=== PATIENT | female | born 1985 | race African-American/Black ===

== ENCOUNTER 2017-04-26 00:40 | Inpatient (IN) | payer OTHER ==
[2017-04-26] VITALS (8 sets, daily range): BP systolic 67–119; BP diastolic 55–78
[~2017-04-26] VITALS: Ht 172.7 cm; Wt 68.0 kg
--- NOTE | 2017-04-26 03:17 | Emergency Room Report ---
History of Present Illness General Chief Complaint: Behavioral Complaint Source: Patient, EMS Present Illness HPI 31-year-old female, history of seizures on Keppra and Dilantin, possible psych history, presenting with abnormal behavior, EMS brought her from the street. Patient is not getting clear history, states that she does not know why she is here. Not necessarily confused but stating that she has no reason to be here. States that she is living at a friend's house right now. No psych history. No auditory hallucinations, no suicidal ideation States that she may have had a seizure today, takes Keppra and Dilantin, has been compliant with her medications States that she gets a seizure about once a month, has not seen a neurologist in a while No head trauma Currently patient feels fine but states that she just wants to sleep She denies any alcohol or drug use Patient is currently refusing all labs to be drawn Allergies: Coded Allergies: No Known Allergies (Unverified , 04/26/17) Patient History Past Medical History: see triage record Past Surgical History: none Pertinent Family History: none Last Menstrual Period: NA Reviewed Nursing Documentation: PMH: Agreed, PSxH: Agreed Nursing Documentation-PMH Hx Diabetes: Yes History Of Psychiatric Problem: Yes - SCHIZOPHRENIA Review of Systems All Other Systems: negative except mentioned in HPI Physical Exam Vital Signs Date Time Temp Pulse Resp B/P (MAP) Pulse Ox O2 Delivery O2 Flow Rate FiO2 04/26/17 00:38 98.1 64 18 110/78 100 Room Air Sp02 EP Interpretation: reviewed, normal General Appearance: other - disheveled female, calm, cooperative, poor historian Head: normocephalic, atraumatic Eyes: bilateral eye normal inspection, bilateral eye PERRL, bilateral eye EOMI ENT: normal ENT inspection, normal pharynx, normal voice, moist mucus membranes Neck: normal inspection, full range of motion, supple Respiratory: normal inspection, lungs clear, normal breath sounds, no respiratory distress, no retraction, no wheezing, speaking full sentences, chest symmetrical Cardiovascular #1: normal inspection, regular rate, rhythm, normal capillary refill Cardiovascular #2: 2+ radial (R), 2+ radial (L) Gastrointestinal: normal inspection, non tender, soft, non-distended, no guarding Musculoskeletal: normal inspection, back normal, normal range of motion, non- tender Neurologic: normal inspection, alert, oriented x3, responsive, school principal III-XII nml as tested, motor strength/tone normal, sensory intact, normal gait, speech normal Psychiatric: no suicidal/homicidal ideation Skin: normal inspection, normal color, no rash, warm/dry, well hydrated, normal turgor Medical Decision Making Diagnostic Impression: Primary Impression: Seizure Additional Impressions: Drug intoxication ER Course 31-year-old female brought in for behavioral complaint by EMS, also states that she had a seizure DDX: Primary seizure, triggered by infection UTI/PNA vs. dehydration vs. medication non compliance Electrolyte disturbance: hypoglycemia vs. hyponatremia vs. hypocalcemia vs. hypomagnesemia Cardiac: Arrythmia/acs Intracranial pathology: intracranial bleed, stroke Tox Plan: BGM EKG, UCG Labs, seizure medication levels, tox labs Consider CT ER course: No further seizures in ED. no SI Has been stable during ED stay. Sleeping comfortably. Patient initially refused all labs, labs were eventually drawn, patient noted to be positive for +positive drug tox for cocaine/marijuana/amphetamine Unclear if seizures were related to her seizure disorder, possible eclampsia However patient's blood pressure has remained normal keppra given 1mg magnesium given pending pelvic sonogram in the morning sent page out to obgyn pending response Disposition: Patient admitted to telemetry Discussed with hospitalist Dr Hampton EKG Diagnostic Results EP Interpretation: Yes Rate: normal Rhythm: NSR ST Segments: No acute changes ASA given to patient: No Laboratory Tests Test 04/26/17 04:05 White Blood Count 11.1 K/UL (4.8-10.8) H Red Blood Count 3.51 M/UL (4.20-5.40) L Hemoglobin 10.7 G/DL (12.0-16.0) L Hematocrit 31.6 % (37.0-47.0) L Mean Corpuscular Volume 90 FL (80-99) Mean Corpuscular Hemoglobin 30.6 PG (27.0-31.0) Mean Corpuscular Hemoglobin Concent 33.9 G/DL (32.0-36.0) Red Cell Distribution Width 13.7 % (11.6-14.8) Platelet Count 311 K/UL (150-450) Mean Platelet Volume 5.9 FL (6.5-10.1) L Neutrophils (%) (Auto) 65.4 % (45.0-75.0) Lymphocytes (%) (Auto) 24.3 % (20.0-45.0) Monocytes (%) (Auto) 5.9 % (1.0-10.0) Eosinophils (%) (Auto) 3.8 % (0.0-3.0) H Basophils (%) (Auto) 0.6 % (0.0-2.0) Urine Color Yellow Urine Appearance Clear Urine pH 6 (4.5-8.0) Urine Specific [place] 1.020 (1.005-1.035) Urine Protein 1+ (NEGATIVE) H Urine Glucose (UA) Negative (NEGATIVE) Urine Ketones Negative (NEGATIVE) Urine Occult Blood 1+ (NEGATIVE) H Urine Nitrite Negative (NEGATIVE) Urine Bilirubin Negative (NEGATIVE) Urine Urobilinogen Normal MG/DL (0.0-1.0) Urine Leukocyte Esterase 1+ (NEGATIVE) H Urine RBC 5-10 /HPF (0 - 2) H Urine WBC 5-10 /HPF (0 - 2) H Urine Squamous Epithelial Cells Few /LPF (NONE/OCC) Urine Bacteria Few /HPF (NONE) Urine HCG, Qualitative Positive Sodium Level 137 MMOL/L (136-145) Potassium Level 3.7 MMOL/L (3.5-5.1) Chloride Level 105 MMOL/L (98-107) Carbon Dioxide Level 26 MMOL/L (21-32) Anion Gap 6 mmol/L (5-15) Blood Urea Nitrogen 8 mg/dL (7-18) Creatinine 0.8 MG/DL (0.55-1.30) Estimate Glomerular Filtration Rate > 60 mL/min (>60) Glucose Level 111 MG/DL (74-106) H Calcium Level 8.5 MG/DL (8.5-10.1) Total Bilirubin 0.1 MG/DL (0.2-1.0) L Aspartate Amino Transferase (AST) 14 U/L (15-37) L Alanine Aminotransferase (ALT) 17 U/L (12-78) Alkaline Phosphatase 61 U/L (46-116) Total Protein 6.5 G/DL (6.4-8.2) Albumin 2.8 G/DL (3.4-5.0) L Globulin 3.7 g/dL Albumin/Globulin Ratio 0.8 (1.0-2.7) L Human Chorionic Gonadotropin, Quant 37235 mIU/mL (1-6) H Salicylates Level 0.7 ug/mL (2.8-20) L Urine Opiates Screen Negative (NEGATIVE) Acetaminophen Level < 2 MCG/ML (10-30) L Urine Barbiturates Screen Negative (NEGATIVE) Phenytoin (Dilantin) Level < 0.4 ug/mL (10-20) L Phencyclidine (PCP) Screen Negative (NEGATIVE) Urine Amphetamines Screen Positive (NEGATIVE) H Urine Benzodiazepines Screen Negative (NEGATIVE) Urine Cocaine Screen Positive (NEGATIVE) H Urine Marijuana (THC) Screen Positive (NEGATIVE) H Serum Alcohol < 3 mg/dL Last Vital Signs Date Time Temp Pulse Resp B/P (MAP) Pulse Ox O2 Delivery O2 Flow Rate FiO2 04/26/17 00:48 98.1 64 18 110/78 100 Room Air Disposition: ADMITTED INPATIENT Condition: Serious Jimena Garcia M.D. Apr 26, 2017 03:17
[2017-04-26 04:22] LABS: APPEARANCE,URINE CLEAR; BASOPHILS % (AUTO) 0.6 % (0.0-2.0); EOSINOPHILS % (AUTO) 3.8 % (0.0-3.0); KETONES,URINE NEGATIVE (NEGATIVE); LEUKOCYTE ESTERASE ,URINE 1+ (NEGATIVE); LYMPHOCYTES % (AUTO) 24.3 % (20.0-45.0); MEAN CORPUSCULAR HEMOGLOBIN 30.6 PG (27.0-31.0); MEAN CORPUSCULAR HGB CONC 33.9 G/DL (32.0-36.0); MEAN CORPUSCULAR VOLUME 90 FL (80-99); MEAN PLATELET VOLUME 5.9 FL (6.5-10.1); MONOCYTES % (AUTO) 5.9 % (1.0-10.0); NEUTROPHILS % (AUTO) 65.4 % (45.0-75.0); NITRITE,URINE NEGATIVE (NEGATIVE); PH,URINE 6 (4.5-8.0); PLATELET COUNT 311 K/UL (150-450); PROTEIN,URINE 1+ (NEGATIVE); RED BLOOD COUNT 3.51 M/UL (4.20-5.40); RED CELL DISTRIBUTION WIDTH 13.7 % (11.6-14.8); UROBILINOGEN,URINE NORMAL MG/DL (0.0-1.0); WHITE BLOOD COUNT 11.1 K/UL (4.8-10.8)
[2017-04-26 04:28] LABS: BACTERIA,URINE FEW /HPF; SQUAMOUS EPITHELIAL CELL,UR FEW /LPF (NONE/OCC)
[2017-04-26 04:39] LABS: ANION GAP 6 mmol/L (5-15); CALCIUM 8.5 MG/DL (8.5-10.1); CARBON DIOXIDE 26 MMOL/L (21-32); CHLORIDE 105 MMOL/L (98-107); CREATININE 0.8 MG/DL (0.55-1.30); GLOMERULAR FILTRATION RATE > 60 mL/min (>60); POTASSIUM 3.7 MMOL/L (3.5-5.1); SODIUM 137 MMOL/L (136-145)
[2017-04-26 04:43] LABS: ALANINE AMINOTRANSFERASE 17 U/L (12-78); ALBUMIN/GLOBULIN RATIO 0.8 (1.0-2.7); ASPARTATE AMINO TRANSFERASE 14 U/L (15-37); TOTAL PROTEIN 6.5 G/DL (6.4-8.2)
[2017-04-26 05:02] LABS: ACETAMINOPHEN < 2 MCG/ML (10-30); ALCOHOL < 3 mg/dL
[2017-04-26] MEDS ORDERED: Miralax 17gm pkt ORAL PRN (07:00)
[2017-04-26] MEDS ORDERED: Zolpidem 5mg tab ORAL PRN (07:00)
[2017-04-26] MEDS ORDERED: LORazepam Inj 2mg/ml 1ml IV PRN (07:00)
[2017-04-26] MEDS ORDERED: Mylanta II UD 30ml ORAL PRN (07:00)
[2017-04-26] MEDS ORDERED: Morphine Sulfate 2mg/ml Inj IVP PRN (07:00)
[2017-04-26] MEDS ORDERED: cefTRIAXone 1 GM in D5W 55 ML IVPB ONE (07:45)
[2017-04-26] MEDS ORDERED: levETIRAcetam 500mg vial IV ONE (08:24)
[2017-04-26] MEDS ORDERED: levETIRAcetam 1,500 MG in D5W 95 ML IVPB ONE (09:00)
--- NOTE | 2017-04-26 12:43 | History and Physical ---
History of Present Illness General Date patient seen: Apr 26, 2017 Reason for Hospitalization: Behavioral Complaint Present Illness HPI 31-year-old female, history of seizures on Keppra and Dilantin, possible psych history, presenting with abnormal behavior, EMS brought her from the street. States that she may have had a seizure today, has been compliant with her medications States that she gets a seizure about once a month, has not seen a neurologist in a while. She is admitted to telemetry for uncontrolled seizures. Allergies: Coded Allergies: No Known Allergies (Unverified , 04/26/17) Patient History Healthcare decision maker Resuscitation status Full Code Advanced Directive on File No Past Medical/Surgical History Past Medical/Surgical History: (1) Seizure Review of Systems All Other Systems: negative except mentioned in HPI Physical Exam General Appearance: WD/WN Lines, tubes and drains: peripheral, central line HEENT: normocephalic, anicteric Neck: non-tender, supple Respiratory/Chest: chest wall non-tender, lungs clear Cardiovascular/Chest: normal peripheral pulses, normal rate Abdomen: normal bowel sounds Last 24 Hour Vital Signs Date Time Temp Pulse Resp B/P (MAP) Pulse Ox O2 Delivery O2 Flow Rate FiO2 04/26/17 10:40 71 16 99/55 100 Room Air 04/26/17 09:03 98.6 74 15 99/55 100 Room Air 04/26/17 07:30 71 16 67/73 100 Room Air 04/26/17 04:48 97.9 72 17 112/61 100 Room Air 04/26/17 02:48 98.1 61 15 119/71 100 Room Air 04/26/17 00:48 98.1 64 18 110/78 100 Room Air 04/26/17 00:38 98.1 64 18 110/78 100 Room Air Intake and Output 04/26/17 04/27/17 19:00 07:00 Intake Total 310 ml Balance 310 ml Intake IV Total 310 ml Laboratory Tests Test 04/26/17 04:05 White Blood Count 11.1 K/UL (4.8-10.8) H Red Blood Count 3.51 M/UL (4.20-5.40) L Hemoglobin 10.7 G/DL (12.0-16.0) L Hematocrit 31.6 % (37.0-47.0) L Mean Corpuscular Volume 90 FL (80-99) Mean Corpuscular Hemoglobin 30.6 PG (27.0-31.0) Mean Corpuscular Hemoglobin Concent 33.9 G/DL (32.0-36.0) Red Cell Distribution Width 13.7 % (11.6-14.8) Platelet Count 311 K/UL (150-450) Mean Platelet Volume 5.9 FL (6.5-10.1) L Neutrophils (%) (Auto) 65.4 % (45.0-75.0) Lymphocytes (%) (Auto) 24.3 % (20.0-45.0) Monocytes (%) (Auto) 5.9 % (1.0-10.0) Eosinophils (%) (Auto) 3.8 % (0.0-3.0) H Basophils (%) (Auto) 0.6 % (0.0-2.0) Urine Color Yellow Urine Appearance Clear Urine pH 6 (4.5-8.0) Urine Specific [place] 1.020 (1.005-1.035) Urine Protein 1+ (NEGATIVE) H Urine Glucose (UA) Negative (NEGATIVE) Urine Ketones Negative (NEGATIVE) Urine Occult Blood 1+ (NEGATIVE) H Urine Nitrite Negative (NEGATIVE) Urine Bilirubin Negative (NEGATIVE) Urine Urobilinogen Normal MG/DL (0.0-1.0) Urine Leukocyte Esterase 1+ (NEGATIVE) H Urine RBC 5-10 /HPF (0 - 2) H Urine WBC 5-10 /HPF (0 - 2) H Urine Squamous Epithelial Cells Few /LPF (NONE/OCC) Urine Bacteria Few /HPF (NONE) Urine HCG, Qualitative Positive Sodium Level 137 MMOL/L (136-145) Potassium Level 3.7 MMOL/L (3.5-5.1) Chloride Level 105 MMOL/L (98-107) Carbon Dioxide Level 26 MMOL/L (21-32) Anion Gap 6 mmol/L (5-15) Blood Urea Nitrogen 8 mg/dL (7-18) Creatinine 0.8 MG/DL (0.55-1.30) Estimat Glomerular Filtration Rate > 60 mL/min (>60) Glucose Level 111 MG/DL (74-106) H Calcium Level 8.5 MG/DL (8.5-10.1) Total Bilirubin 0.1 MG/DL (0.2-1.0) L Aspartate Amino Transf (AST/SGOT) 14 U/L (15-37) L Alanine Aminotransferase (ALT/SGPT) 17 U/L (12-78) Alkaline Phosphatase 61 U/L (46-116) Total Protein 6.5 G/DL (6.4-8.2) Albumin 2.8 G/DL (3.4-5.0) L Globulin 3.7 g/dL Albumin/Globulin Ratio 0.8 (1.0-2.7) L Human Chorionic Gonadotropin, Quant 52013 mIU/mL (1-6) H Salicylates Level 0.7 ug/mL (2.8-20) L Urine Opiates Screen Negative (NEGATIVE) Acetaminophen Level < 2 MCG/ML (10-30) L Urine Barbiturates Screen Negative (NEGATIVE) Phenytoin (Dilantin) Level < 0.4 ug/mL (10-20) L Phencyclidine (PCP) Screen Negative (NEGATIVE) Urine Amphetamines Screen Positive (NEGATIVE) H Urine Benzodiazepines Screen Negative (NEGATIVE) Urine Cocaine Screen Positive (NEGATIVE) H Urine Marijuana (THC) Screen Positive (NEGATIVE) H Serum Alcohol < 3 mg/dL Height (Feet): 5 Height (Inches): 8.00 Weight (Pounds): 150 Medications Current Medications Medications (Trade) Dose Ordered Sig/Peter Route PRN Reason Start Time Stop Time Status Last Admin Dose Admin Acetaminophen (Tylenol) 650 mg Q4H PRN ORAL fever (temp >100.5F) 04/26/17 07:00 05/26/17 06:59 Al Hydroxide/Mg Hydroxide (Mylanta II) 30 ml Q6H PRN ORAL dyspepsia 04/26/17 07:00 05/26/17 06:59 Dextrose (Dextrose 50%) STAT PRN IV Hypoglycemia 04/26/17 07:00 05/26/17 06:59 Morphine Sulfate (Morphine Sulfate) 1 mg Q4H PRN IVP For Pain 04/26/17 07:00 05/03/17 06:59 Ondansetron HCl (Zofran) 4 mg Q6H PRN IVP Nausea & Vomiting 04/26/17 07:00 05/26/17 06:59 Polyethylene Glycol (Miralax) 17 gm HSPRN PRN ORAL Constipation 04/26/17 07:00 05/26/17 06:59 Assessment/Plan Problem List: (1) Uncontrolled seizures ICD Codes: R56.9 - Unspecified convulsions SNOMED: [id number] Assessment/Plan seizure precaution Neuro evaluation dvt prophylaxis psych evaluation. ANSON HORAN Apr 26, 2017 12:43
--- NOTE | 2017-04-26 14:14 | Neurology Progress Note ---
Objective Physical Exam Last Vital Signs Date Time Temp Pulse Resp B/P (MAP) Pulse Ox O2 Delivery O2 Flow Rate FiO2 04/26/17 12:48 97.5 66 18 102/60 97 04/26/17 10:40 Room Air Laboratory Tests Test 04/26/17 04:05 White Blood Count 11.1 K/UL (4.8-10.8) H Red Blood Count 3.51 M/UL (4.20-5.40) L Hemoglobin 10.7 G/DL (12.0-16.0) L Hematocrit 31.6 % (37.0-47.0) L Mean Corpuscular Volume 90 FL (80-99) Mean Corpuscular Hemoglobin 30.6 PG (27.0-31.0) Mean Corpuscular Hemoglobin Concent 33.9 G/DL (32.0-36.0) Red Cell Distribution Width 13.7 % (11.6-14.8) Platelet Count 311 K/UL (150-450) Mean Platelet Volume 5.9 FL (6.5-10.1) L Neutrophils (%) (Auto) 65.4 % (45.0-75.0) Lymphocytes (%) (Auto) 24.3 % (20.0-45.0) Monocytes (%) (Auto) 5.9 % (1.0-10.0) Eosinophils (%) (Auto) 3.8 % (0.0-3.0) H Basophils (%) (Auto) 0.6 % (0.0-2.0) Urine Color Yellow Urine Appearance Clear Urine pH 6 (4.5-8.0) Urine Specific [place] 1.020 (1.005-1.035) Urine Protein 1+ (NEGATIVE) H Urine Glucose (UA) Negative (NEGATIVE) Urine Ketones Negative (NEGATIVE) Urine Occult Blood 1+ (NEGATIVE) H Urine Nitrite Negative (NEGATIVE) Urine Bilirubin Negative (NEGATIVE) Urine Urobilinogen Normal MG/DL (0.0-1.0) Urine Leukocyte Esterase 1+ (NEGATIVE) H Urine RBC 5-10 /HPF (0 - 2) H Urine WBC 5-10 /HPF (0 - 2) H Urine Squamous Epithelial Cells Few /LPF (NONE/OCC) Urine Bacteria Few /HPF (NONE) Urine HCG, Qualitative Positive Sodium Level 137 MMOL/L (136-145) Potassium Level 3.7 MMOL/L (3.5-5.1) Chloride Level 105 MMOL/L (98-107) Carbon Dioxide Level 26 MMOL/L (21-32) Anion Gap 6 mmol/L (5-15) Blood Urea Nitrogen 8 mg/dL (7-18) Creatinine 0.8 MG/DL (0.55-1.30) Estimat Glomerular Filtration Rate > 60 mL/min (>60) Glucose Level 111 MG/DL (74-106) H Calcium Level 8.5 MG/DL (8.5-10.1) Total Bilirubin 0.1 MG/DL (0.2-1.0) L Aspartate Amino Transf (AST/SGOT) 14 U/L (15-37) L Alanine Aminotransferase (ALT/SGPT) 17 U/L (12-78) Alkaline Phosphatase 61 U/L (46-116) Total Protein 6.5 G/DL (6.4-8.2) Albumin 2.8 G/DL (3.4-5.0) L Globulin 3.7 g/dL Albumin/Globulin Ratio 0.8 (1.0-2.7) L Human Chorionic Gonadotropin, Quant 16862 mIU/mL (1-6) H Salicylates Level 0.7 ug/mL (2.8-20) L Urine Opiates Screen Negative (NEGATIVE) Acetaminophen Level < 2 MCG/ML (10-30) L Urine Barbiturates Screen Negative (NEGATIVE) Phenytoin (Dilantin) Level < 0.4 ug/mL (10-20) L Phencyclidine (PCP) Screen Negative (NEGATIVE) Urine Amphetamines Screen Positive (NEGATIVE) H Urine Benzodiazepines Screen Negative (NEGATIVE) Urine Cocaine Screen Positive (NEGATIVE) H Urine Marijuana (THC) Screen Positive (NEGATIVE) H Serum Alcohol < 3 mg/dL Impression/Recommendations Recommendations # [id number] PSYCH SHANIQUA Brooks Apr 26, 2017 14:14
[2017-04-26] MEDS: OXcarbazepine 150mg tab ORAL SCH ×2 (15:29→23:16)
--- NOTE | 2017-04-26 15:37 | Diagnostic Imaging Report ---
Indication:Reason For Exam: PREOP. Unknown LMP. Technique: Grayscale and duplex Doppler imaging of the pelvis utilizing transabdominal probe. Comparison: None Findings: Uterus measures 15.3 x 8.5 x 10 cm. The cervix appears long and closed. A patterson live intrauterine is noted. Placenta is anterior. Biparietal diameter measuring 29 mm. Head circumference measures 105 mm. [place]-rump length measures approximately 79 mm. Femoral length measures approximately 13 mm. heart rate measured 150 bpm. Bilateral ovaries are not definitively visualized. There is some echogenic debris noted within the bladder. No free fluid is seen. IMPRESSION: [place] live intrauterine with gestational age by ultrasound of approximately 15 weeks. No gross abnormality. Ovaries not definitively visualized. No free pelvic fluid. Questionable echogenic debris noted within the urinary bladder. This may be artifactual. Correlate with urinalysis to exclude cystitis. Note: A negative ultrasound evaluation does not insure well-being or positive outcome for the . monitoring including a nonstress test may be needed and clinical evaluation by [employer]EL[employer] is highly recommended.
--- NOTE | 2017-04-26 23:15 | Consultation ---
DATE OF CONSULTATION: 04/26/2017 NEUROLOGICAL CONSULTATION CONSULTING PHYSICIAN: Christopher Davison M.D. REQUESTING PHYSICIAN: Antoine Hampton M.D. HISTORY OF PRESENT ILLNESS: This 31-year-old female seen in neurological consultation to evaluate the chronic seizure disorder, currently presenting with abnormal behavior. The patient indicated that she came here because she did not feel well, but according to records, she was picked up initially on the street, presenting that she has history of seizures. She was brought to emergency room. Her vital signs remained stable. She was afebrile. Her EKG, normal sinus rhythm. Lab work was obtained. This revealed WBC 11.1, hemoglobin 10.7, and hematocrit 31.6. Urinalysis 5-10 WBCs and 1+ leukocyte esterase. Toxicology panel was positive for amphetamine, cocaine, and marijuana. Chemistry panel was unremarkable except for blood sugar of 111 and positive test. Since admission till present, the patient remained in the bed, refusing diagnostic studies. Since admission till present, there was no evidence of paroxysmal activities. The patient was able to inform me that she is suffering from severe depression. She felt that Paxil caused her seizures, where she continued to have them once or twice in a couple of months, some of the seizures with urinary incontinence, loss of consciousness and fall, some "very violent," description was inconsistent. The patient indicates that treatment she was using, Depakote and Keppra, was not effective. She tried Tegretol, which was "more effective" and she tried Lamictal, which gave her rash. She felt Depakote was also effective. The patient stopped taking all of this couple of months ago. She also stopped taking psychiatric treatment because she felt that they make her feel worse. PAST MEDICAL HISTORY: The patient has a history of asthma. She used to use albuterol. She denies any other major problems. SOCIAL HISTORY: The patient indicates that she was , now . She has 7 children all taken care of by the . She is now again and intended to do , but she is not sure, but then contradicts herself stating that she would not like to take medications, which could affect the . The patient is denying alcohol or drug abuse, but admits she is a smoker. FAMILY HISTORY: Unavailable. REVIEW OF SYMPTOMS: The patient complains of severe pain, headache, upper back, mid back, both shoulders and feeling woozy. She indicates that light makes her more irritated. She cannot stand too much noises and too many people around. Denies chest pain or palpitation, but admitted having shortness of breath when having seizure. Denies abdominal pain or discomfort. No urine or bowel incontinence. PHYSICAL EXAMINATION: GENERAL: A well-developed, well-nourished female, found to be lying in bed, covered with a blanket. MUSCULOSKELETAL EXAMINATION: Unremarkable. There are no deformities. Peripheral pulses 1+ and symmetric. MENTAL STATUS: The patient initially would not like to talk indicating that she has too much pain and asked to come in an hour or tomorrow, but as I continued conversing, she was responding and started to give me history. She was then later able to open her face, look around, and that appeared to be without difficulties. The patient became increasingly agitated, continued with profanities in her speech, and being angry at the paramedics who would ask her questions like where is her family, where is her children, she was expressing anger of such "stupid questions" and at that point, she became somewhat incoherent. She was able to follow simple commands. CRANIAL NERVE II: Pupils both responding to light and accommodation. Extraocular movements intact. No nystagmus. CRANIAL NERVE V: Normal corneal responses. CRANIAL NERVE VII: No facial asymmetry. CRANIAL NERVE VIII: Normal hearing. CRANIAL NERVES IX THROUGH XII: Within normal limits. MOTOR EXAMINATION: Normal muscle tone, and strength 5/5 in all extremities. No involuntary movement. Deep tendon reflexes 1+ and symmetric with downgoing toes on both sides. SENSORY EXAMINATION: Normal to pin stimulation. Gait not tested, but reported she is able to ambulate without assistance, but reluctant to get up now. IMPRESSION: 1. Chronic psychiatric disorder, exacerbation. 2. History of seizure disorder, rule out pseudoseizures, rule out partial complex seizure activity with secondary generalization. 3. . 4. Substance abuse. 5. History of bronchial asthma. 6. Incomplete information. DISCUSSION: The patient indicates that she lives with her sister, although later was corrected that she is with her friend. Currently, she has psychotic behavior and her description of seizures is somewhat inconsistent. The issue rises that if she is , practically all anticonvulsants are teratogenics more than others. Fortunately, she is allergic to Lamictal, which has the most benign profile. She was getting better. Though she felt improvement in the past with Tegretol or carbamazepine, I might offer her Trileptal 150 mg b.i.d. Current psychotic outbreak maybe related to drug toxicity with amphetamines. Psychiatry evaluation will be necessary. We will observe for any further paroxysmal events. Get a baseline MRI of the brain and electroencephalogram. Thank you for allowing me to see this interesting patient in neurological consultation. Christopher Davison M.D. DR: MYLENE JOB#: [id number] CC:
[2017-04-27] VITALS: BP 115/64
--- NOTE | 2017-04-27 07:50 | Pulmonology Progress Note ---
Assessment/Plan Assessment/Plan ASSESSMENT Acute toxic metabolic encephalopathy ( due to intractable seizures, drug abuse) Intractable seizure disorder, rule out pseudoseizures, rule out partial complex seizure activity with secondary generalization. Chronic psychiatric disorder, exacerbation. Anemia Polysubstance abuse PLAN OF CARE Tele Seizure precautions Keppra 2 gm Mg given in ED Mg still low-1.4, additional 3 gm Mg today neuro eval appreciated EEG pending neuro to advise on future a/epileptic given her state, since most of all teratogenic tox screen + cocaine, amphetamine, marijuana test positive OB US indicated viable 15 week live added Folic acid and MVI venous Duplex BLE DVT prophylaxis psych eval monitor counts family and marriage counsellor on abstinence from street drug while transfer to [facility] floor SW eval dc plan case discussed and evaluated by supervising physician Subjective Allergies: Coded Allergies: LAMOTRIGINE (Verified Allergy, Unknown, 04/27/17) Subjective reports feeling weak no further seizures Mg-1.4 Objective Last 24 Hour Vital Signs Date Time Temp Pulse Resp B/P (MAP) Pulse Ox O2 Delivery O2 Flow Rate FiO2 04/27/17 03:34 73 04/27/17 00:00 98.0 85 20 115/64 98 Room Air 04/26/17 23:57 81 04/26/17 20:00 98.0 85 20 115/64 98 Room Air 04/26/17 19:18 75 04/26/17 16:00 78 04/26/17 16:00 97.6 105 20 110/68 96 04/26/17 12:48 97.5 66 18 102/60 97 04/26/17 12:00 99 Room Air 04/26/17 12:00 70 04/26/17 10:40 71 16 99/55 100 Room Air 04/26/17 09:03 98.6 74 15 99/55 100 Room Air General Appearance: no acute distress HEENT: normocephalic, atraumatic, anicteric Respiratory/Chest: lungs clear, no respiratory distress, no accessory muscle use Cardiovascular: normal peripheral pulses, normal rate, regular rhythm - SR on tele Abdomen: soft, non tender, non distended Genitourinary: normal external genitalia Extremities: no edema, pedal pulses normal Neurologic/Psychiatric: no motor/sensory deficits, alert, oriented x 3, responsive Musculoskeletal: normal muscle bulk Current Medications Medications (Trade) Dose Ordered Sig/Peter Route PRN Reason Start Time Stop Time Status Last Admin Dose Admin Acetaminophen (Tylenol) 650 mg Q4H PRN ORAL fever (temp >100.5F) 04/26/17 07:00 05/26/17 06:59 Al Hydroxide/Mg Hydroxide (Mylanta II) 30 ml Q6H PRN ORAL dyspepsia 04/26/17 07:00 05/26/17 06:59 Dextrose (Dextrose 50%) STAT PRN IV Hypoglycemia 04/26/17 07:00 05/26/17 06:59 Folic Acid (Folate) 1 mg DAILY ORAL 04/26/17 15:00 05/26/17 14:59 04/26/17 15:29 Morphine Sulfate (Morphine Sulfate) 1 mg Q4H PRN IVP For Pain 04/26/17 07:00 05/03/17 06:59 Multivitamins (Multivitamins) 1 tab DAILY ORAL 04/26/17 15:00 05/26/17 14:59 04/26/17 15:29 Ondansetron HCl (Zofran) 4 mg Q6H PRN IVP Nausea & Vomiting 04/26/17 07:00 05/26/17 06:59 Oxcarbazepine (Trileptal) 300 mg EVERY 12 HOURS ORAL 04/26/17 15:00 05/26/17 14:59 04/26/17 23:16 Polyethylene Glycol (Miralax) 17 gm HSPRN PRN ORAL Constipation 04/26/17 07:00 05/26/17 06:59 Dejah Rivera NP ([facility]) Apr 27, 2017 07:50
[2017-04-27 08:00] VITALS: BP 121/67
[2017-04-27] MEDS: OXcarbazepine 150mg tab ORAL SCH ×2 (09:26→21:36)
[2017-04-27 10:00] LABS: BASOPHILS % (AUTO) 0.7 % (0.0-2.0); EOSINOPHILS % (AUTO) 2.4 % (0.0-3.0); LYMPHOCYTES % (AUTO) 24.4 % (20.0-45.0); MEAN CORPUSCULAR HEMOGLOBIN 30.4 PG (27.0-31.0); MEAN CORPUSCULAR HGB CONC 32.9 G/DL (32.0-36.0); MEAN CORPUSCULAR VOLUME 92 FL (80-99); MEAN PLATELET VOLUME 5.7 FL (6.5-10.1); MONOCYTES % (AUTO) 5.9 % (1.0-10.0); NEUTROPHILS % (AUTO) 66.6 % (45.0-75.0); PLATELET COUNT 314 K/UL (150-450); RED BLOOD COUNT 3.69 M/UL (4.20-5.40); RED CELL DISTRIBUTION WIDTH 14.5 % (11.6-14.8); WHITE BLOOD COUNT 10.7 K/UL (4.8-10.8)
[2017-04-27 10:18] LABS: ALANINE AMINOTRANSFERASE 15 U/L (12-78); ALBUMIN/GLOBULIN RATIO 0.7 (1.0-2.7); ANION GAP 5 mmol/L (5-15); ASPARTATE AMINO TRANSFERASE 11 U/L (15-37); CALCIUM 8.6 MG/DL (8.5-10.1); CARBON DIOXIDE 28 MMOL/L (21-32); CHLORIDE 104 MMOL/L (98-107); CHOLESTEROL 153 MG/DL (< 200); CREATININE 0.8 MG/DL (0.55-1.30); GLOMERULAR FILTRATION RATE > 60 mL/min (>60); POTASSIUM 4.2 MMOL/L (3.5-5.1); SODIUM 136 MMOL/L (136-145); TOTAL PROTEIN 6.6 G/DL (6.4-8.2)
[2017-04-27 10:43] LABS: THYROID STIMULATING HORMONE 0.154 uiU/mL (0.358-3.740)
[2017-04-27 12:00] VITALS: BP 119/63
[2017-04-27 16:00] VITALS: BP 114/59
[2017-04-27] MEDS ORDERED: Mylanta II UD 30ml ORAL PRN (17:00)
[2017-04-27] MEDS ORDERED: Morphine Sulfate 2mg/ml Inj IVP PRN (19:00)
--- NOTE | 2017-04-27 19:30 | Electroencephalogram ---
DATE OF PROCEDURE: 04/26/2017 ELECTROENCEPHALOGRAPHY REPORT REFERRING PHYSICIAN: Antoine Hampton M.D. DATE OF TEST: 04/26/2017 HISTORY: This is a 31-year-old female with a history of seizure disorder, currently maintained on Trileptal, Dilantin, and Keppra. TECHNIQUE: EEG was done using 18 electrodes placed [id number], [id number] montages according to 10/[employer] System. During recording, the patient described as being poorly cooperative, drowsy, or asleep Most of the recording, the patient remained drowsy, but with a brief epochs of full wakefulness, background consisted of a 8 cycles per second, [id number] voltage alpha activity. Throughout the recording, there was no paroxysmal event. No narrow amplitude asymmetry. No spike or wave activities. While drowsy, there was generalized attenuation and theta range of 6 to 7 cycles bilaterally. Activation procedure limited to eye opening and eye closure. IMPRESSION: Normal awake stage 1 sleep EEG. COMMENT: Absence of paroxysmal event on a single recording, does not rule out seizure disorder. Christopher Davison M.D. DR: Ana JOB#: [id number] CC:
[2017-04-27 20:00] VITALS: BP 113/59
[2017-04-27] MEDS ORDERED: Miralax 17gm pkt ORAL PRN (21:00)
[2017-04-28] VITALS: BP 106/47
[2017-04-28 08:00] VITALS: BP 117/67
[2017-04-28] MEDS: OXcarbazepine 150mg tab ORAL SCH ×2 (09:27→20:37)
[2017-04-28 11:42] VITALS: BP 105/73
--- NOTE | 2017-04-28 13:18 | Pulmonology Progress Note ---
Assessment/Plan Assessment/Plan ASSESSMENT Acute toxic metabolic encephalopathy ( due to intractable seizures, drug abuse) Intractable seizure disorder, rule out pseudoseizures, rule out partial complex seizure activity with secondary generalization. Chronic psychiatric disorder, exacerbation. Anemia Polysubstance abuse PLAN OF CARE MS floor Seizure precautions Keppra s/p Mg replacement check Mg in am neuro eval appreciated EEG normal neuro to advise on future a/epileptic given her state, since most of all teratogenic tox screen + cocaine, amphetamine, marijuana test positive OB US indicated viable 15 week live added Folic acid and MVI venous Duplex BLE DVT prophylaxis psych eval monitor counts alcoholic counselor on abstinence from street drug while SS eval for placement: homeless, dc plan after SW recommendations case discussed and evaluated by supervising physician Subjective Allergies: Coded Allergies: LAMOTRIGINE (Verified Allergy, Unknown, 04/27/17) Subjective reports feeling weak no further seizures Objective Last 24 Hour Vital Signs Date Time Temp Pulse Resp B/P (MAP) Pulse Ox O2 Delivery O2 Flow Rate FiO2 04/28/17 11:42 98.6 81 19 105/73 98 Room Air 04/28/17 08:00 98.2 80 18 117/67 99 Room Air 04/28/17 00:00 98.0 72 19 106/47 98 Room Air 04/27/17 20:00 98.1 88 20 113/59 96 Room Air 04/27/17 16:00 99.1 82 20 114/59 98 Intake and Output 04/28/17 04/29/17 19:00 07:00 Intake Total 480 ml Balance 480 ml Intake Oral 480 ml Objective General Appearance: no acute distress HEENT: normocephalic, atraumatic, anicteric Respiratory/Chest: lungs clear, no respiratory distress, no accessory muscle use Cardiovascular: normal peripheral pulses, normal rate, regular rhythm - Abdomen: soft, non tender, non distended Genitourinary: normal external genitalia Extremities: no edema, pedal pulses normal Neurologic/Psychiatric: no motor/sensory deficits, alert, oriented x 3, responsive Musculoskeletal: normal muscle bulk Microbiology Date/Time Source Procedure Growth Status 04/26/17 07:50 Nasal Nares MRSA Culture - Final NO METHICILLIN RESISTANT STAPH AUREUS... Complete 04/26/17 07:50 Rectum VRE Culture - Final NO VANCOMYCIN RESISTANT ENTEROCOCCUS ... Complete Current Medications Medications (Trade) Dose Ordered Sig/Peter Route PRN Reason Start Time Stop Time Status Last Admin Dose Admin Acetaminophen (Tylenol) 650 mg Q4H PRN ORAL fever (temp >100.5F) 04/27/17 17:00 05/26/17 16:59 Al Hydroxide/Mg Hydroxide (Mylanta II) 30 ml Q6H PRN ORAL dyspepsia 04/27/17 17:00 05/26/17 16:59 Dextrose (Dextrose 50%) STAT PRN IV Hypoglycemia 04/27/17 17:00 05/27/17 16:59 Folic Acid (Folate) 1 mg DAILY ORAL 04/28/17 09:00 05/26/17 14:59 04/28/17 09:27 Morphine Sulfate (Morphine Sulfate) 1 mg Q4H PRN IVP For Pain 04/27/17 19:00 05/03/17 06:59 Multivitamins (Multivitamins) 1 tab DAILY ORAL 04/28/17 09:00 05/26/17 14:59 04/28/17 09:25 Ondansetron HCl (Zofran) 4 mg Q6H PRN IVP Nausea & Vomiting 04/27/17 17:00 05/26/17 16:59 Oxcarbazepine (Trileptal) 300 mg EVERY 12 HOURS ORAL 04/27/17 21:00 05/26/17 14:59 04/28/17 09:27 Polyethylene Glycol (Miralax) 17 gm HSPRN PRN ORAL Constipation 04/27/17 21:00 05/27/17 20:59 Miguel VidalesDejah barbosa NP Apr 28, 2017 13:18
[2017-04-28 16:00] VITALS: BP 110/57
[2017-04-28] MEDS ORDERED: Tubing IV Secondary IV ONE (16:05)
[2017-04-28] MEDS ORDERED: NS 500ML ONE (16:05)
[2017-04-28 20:00] VITALS: BP 111/56
[2017-04-29] VITALS: BP 110/58
[2017-04-29 04:00] VITALS: BP 114/66
[2017-04-29 07:39] LABS: BASOPHILS % (AUTO) 0.6 % (0.0-2.0); EOSINOPHILS % (AUTO) 2.2 % (0.0-3.0); LYMPHOCYTES % (AUTO) 20.3 % (20.0-45.0); MEAN CORPUSCULAR HEMOGLOBIN 30.4 PG (27.0-31.0); MEAN CORPUSCULAR VOLUME 92 FL (80-99); MEAN PLATELET VOLUME 5.9 FL (6.5-10.1); MONOCYTES % (AUTO) 5.9 % (1.0-10.0); PLATELET COUNT 292 K/UL (150-450); RED BLOOD COUNT 3.76 M/UL (4.20-5.40); RED CELL DISTRIBUTION WIDTH 14.2 % (11.6-14.8); WHITE BLOOD COUNT 13.5 K/UL (4.8-10.8)
[2017-04-29 07:42] LABS: ANION GAP 6 mmol/L (5-15); CALCIUM 8.3 MG/DL (8.5-10.1); CARBON DIOXIDE 25 MMOL/L (21-32); CHLORIDE 104 MMOL/L (98-107); CREATININE 0.7 MG/DL (0.55-1.30); GLOMERULAR FILTRATION RATE > 60 mL/min (>60); MAGNESIUM 1.4 MG/DL (1.8-2.4); POTASSIUM 3.8 MMOL/L (3.5-5.1); SODIUM 135 MMOL/L (136-145)
[2017-04-29] MEDS: OXcarbazepine 150mg tab ORAL SCH ×2 (08:12→21:08)
[2017-04-29 08:59] VITALS: BP 120/63
--- NOTE | 2017-04-29 10:08 | Pulmonology Progress Note ---
Assessment/Plan Assessment/Plan ASSESSMENT Acute toxic metabolic encephalopathy ( due to intractable seizures, drug abuse) Intractable seizure disorder, rule out pseudoseizures, rule out partial complex seizure activity with secondary generalization. Chronic psychiatric disorder, exacerbation. Anemia Polysubstance abuse PLAN OF CARE MS floor Seizure precautions Keppra s/p Mg replacement patient declined further Mg replacement neuro eval appreciated EEG normal neuro to advise on future a/epileptic given her state, since most of all teratogenic tox screen + cocaine, amphetamine, marijuana test positive OB US indicated viable 15 week live added Folic acid and MVI repeat UA due to leukocytosis venous Duplex BLE DVT prophylaxis psych eval monitor counts personal counselor on abstinence from street drug while SS eval for placement: homeless, dc plan after SW recommendations case discussed and evaluated by supervising physician Subjective Allergies: Coded Allergies: LAMOTRIGINE (Verified Allergy, Unknown, 04/27/17) Subjective reports feeling weak no further seizures today with mild leukocytosis , afebrile awaiting for SS eval Objective Last 24 Hour Vital Signs Date Time Temp Pulse Resp B/P (MAP) Pulse Ox O2 Delivery O2 Flow Rate FiO2 04/29/17 08:59 98.2 84 19 120/63 97 Room Air 04/29/17 04:00 98.2 86 20 114/66 96 04/29/17 00:00 98.2 65 21 110/58 98 04/28/17 20:00 98.8 86 21 111/56 97 04/28/17 16:00 98.1 94 19 110/57 97 Room Air 04/28/17 11:42 98.6 81 19 105/73 98 Room Air Objective General Appearance: no acute distress HEENT: normocephalic, atraumatic, anicteric Respiratory/Chest: lungs clear, no respiratory distress, no accessory muscle use Cardiovascular: normal peripheral pulses, normal rate, regular rhythm - Abdomen: soft, non tender, non distended Genitourinary: normal external genitalia Extremities: no edema, pedal pulses normal Neurologic/Psychiatric: no motor/sensory deficits, alert, oriented x 3, responsive Musculoskeletal: normal muscle bulk Laboratory Tests 04/29/17 05:05: White Blood Count 13.5H, Red Blood Count 3.76L, Hemoglobin 11.4L, Hematocrit 34.7L, Mean Corpuscular Volume 92, Mean Corpuscular Hemoglobin 30.4, Mean Corpuscular Hemoglobin Concent 33.0, Red Cell Distribution Width 14.2, Platelet Count 292, Mean Platelet Volume 5.9L, Neutrophils (%) (Auto) 71.0, Lymphocytes ( %) (Auto) 20.3, Monocytes (%) (Auto) 5.9, Eosinophils (%) (Auto) 2.2, Basophils (%) (Auto) 0.6, Sodium Level 135L, Potassium Level 3.8, Chloride Level 104, Carbon Dioxide Level 25, Anion Gap 6, Blood Urea Nitrogen 9, Creatinine 0.7, Estimat Glomerular Filtration Rate > 60, Glucose Level 108H, Calcium Level 8.3L , Magnesium Level 1.4L Current Medications Medications (Trade) Dose Ordered Sig/Peter Route PRN Reason Start Time Stop Time Status Last Admin Dose Admin Acetaminophen (Tylenol) 650 mg Q4H PRN ORAL fever (temp >100.5F) 04/27/17 17:00 05/26/17 16:59 04/29/17 08:13 Al Hydroxide/Mg Hydroxide (Mylanta II) 30 ml Q6H PRN ORAL dyspepsia 04/27/17 17:00 05/26/17 16:59 Dextrose (Dextrose 50%) STAT PRN IV Hypoglycemia 04/27/17 17:00 05/27/17 16:59 Folic Acid (Folate) 1 mg DAILY ORAL 04/28/17 09:00 05/26/17 14:59 04/29/17 08:11 Morphine Sulfate (Morphine Sulfate) 1 mg Q4H PRN IVP For Pain 04/27/17 19:00 05/03/17 06:59 Multivitamins (Multivitamins) 1 tab DAILY ORAL 04/28/17 09:00 05/26/17 14:59 04/29/17 08:11 Ondansetron HCl (Zofran) 4 mg Q6H PRN IVP Nausea & Vomiting 04/27/17 17:00 05/26/17 16:59 04/29/17 08:11 Oxcarbazepine (Trileptal) 300 mg EVERY 12 HOURS ORAL 04/27/17 21:00 05/26/17 14:59 04/29/17 08:12 Polyethylene Glycol (Miralax) 17 gm HSPRN PRN ORAL Constipation 04/27/17 21:00 05/27/17 20:59 Rivera ([facility])Dejah NP Apr 29, 2017 10:08
[2017-04-29 11:55] VITALS: BP 107/68
[2017-04-29 16:15] VITALS: BP 110/58
[2017-04-29 20:00] VITALS: BP 116/52
[2017-04-30] VITALS: BP 111/50
[2017-04-30 04:00] VITALS: BP 114/65
[2017-04-30 08:15] VITALS: BP 108/57
--- NOTE | 2017-04-30 08:28 | General Progress Note ---
Assessment/Plan Status: stable Assessment/Plan Acute toxic metabolic encephalopathy ( due to intractable seizures, drug abuse) Intractable seizure disorder, rule out pseudoseizures, rule out partial complex seizure activity with secondary generalization. Chronic psychiatric disorder, exacerbation. Anemia Polysubstance abuse PLAN OF CARE Once disposition plan is confirmed . ok to DC. followup with SW Subjective ROS Limited/Unobtainable: No Constitutional: Reports: no symptoms HEENT: Reports: no symptoms Cardiovascular: Reports: no symptoms Respiratory: Reports: no symptoms Allergies: Coded Allergies: LAMOTRIGINE (Verified Allergy, Unknown, 04/27/17) Objective Last 24 Hour Vital Signs Date Time Temp Pulse Resp B/P (MAP) Pulse Ox O2 Delivery O2 Flow Rate FiO2 04/30/17 04:00 98.1 71 21 114/65 100 04/30/17 00:00 97.5 76 21 111/50 98 04/29/17 20:00 99.1 95 21 116/52 97 04/29/17 16:15 97.9 85 19 110/58 98 Room Air 04/29/17 11:55 98.0 86 19 107/68 96 04/29/17 08:59 98.2 84 19 120/63 97 Room Air Height (Feet): 5 Height (Inches): 8.00 Weight (Pounds): 150 General Appearance: no apparent distress EENT: PERRL/EOMI Neck: supple Cardiovascular: normal rate Respiratory/Chest: lungs clear Abdomen: soft Neurologic: open claims representative II-XII grossly normal Blu Brody MD Apr 30, 2017 08:28
[2017-04-30] MEDS: OXcarbazepine 150mg tab ORAL SCH (11:24)
[2017-04-30] MEDS ORDERED: MULTIVITAMINS1 EAC2 ORAL (11:52)
[2017-04-30] MEDS ORDERED: TRILEPTAL150 M2 ORAL (11:52)
[2017-04-30] MEDS ORDERED: FOLIC ACID1 MG ORAL (11:52)
[2017-04-30 12:15] VITALS: BP 125/72
[2017-04-30 14:43] LABS: BASOPHILS % (AUTO) 0.6 % (0.0-2.0); EOSINOPHILS % (AUTO) 1.8 % (0.0-3.0); LYMPHOCYTES % (AUTO) 18.2 % (20.0-45.0); MEAN CORPUSCULAR HEMOGLOBIN 30.8 PG (27.0-31.0); MEAN CORPUSCULAR HGB CONC 33.2 G/DL (32.0-36.0); MEAN CORPUSCULAR VOLUME 93 FL (80-99); MONOCYTES % (AUTO) 5.9 % (1.0-10.0); NEUTROPHILS % (AUTO) 73.5 % (45.0-75.0); PLATELET COUNT 296 K/UL (150-450); RED BLOOD COUNT 3.53 M/UL (4.20-5.40); RED CELL DISTRIBUTION WIDTH 13.7 % (11.6-14.8); WHITE BLOOD COUNT 14.4 K/UL (4.8-10.8)
[2017-04-30 14:53] LABS: ANION GAP 7 mmol/L (5-15); CALCIUM 8.5 MG/DL (8.5-10.1); CARBON DIOXIDE 27 MMOL/L (21-32); CHLORIDE 102 MMOL/L (98-107); CREATININE 0.7 MG/DL (0.55-1.30); GLOMERULAR FILTRATION RATE > 60 mL/min (>60); POTASSIUM 3.8 MMOL/L (3.5-5.1); SODIUM 136 MMOL/L (136-145)
[2017-04-30 16:15] VITALS: BP 110/64
--- NOTE | 2017-04-30 23:11 | Consultation ---
History of Present Illness General Date patient seen: Apr 30, 2017 Chief Complaint: Behavioral Complaint Present Illness HPI 31 yo with hx of mdd and anxiety. the pt is . the pt stated that she was depressed however denied si/hi. the pt stated that her depression is manageble and she was reluctant to take psych meds. the pt has poor insight and was irritable the pt used profanity toward one of our staff. The patient was able to inform me that she is suffering from severe depression. She felt that Paxil caused her seizures Allergies: Coded Allergies: LAMOTRIGINE (Verified Allergy, Unknown, 04/27/17) Medication History Scheduled Folic Acid* (Folic Acid*), 1 MG ORAL DAILY Multivitamins* (Multivitamins*), 1 TAB ORAL DAILY Oxcarbazepine (Oxcarbazepine), 300 MG ORAL EVERY 12 HOURS Patient History Limited by: medical condition History Provided By: Patient, Medical Record, PMD Healthcare decision maker Resuscitation status Full Code Advanced Directive on File No Past Medical/Surgical History Past Medical/Surgical History: (1) Uncontrolled seizures Physical Exam Last 24 Hour Vital Signs Date Time Temp Pulse Resp B/P (MAP) Pulse Ox O2 Delivery O2 Flow Rate FiO2 04/30/17 16:15 97.0 95 20 110/64 97 Room Air 04/30/17 12:15 98.0 92 20 125/72 99 Room Air 04/30/17 08:15 97.7 87 19 108/57 97 Room Air 04/30/17 04:00 98.1 71 21 114/65 100 04/30/17 00:00 97.5 76 21 111/50 98 Intake and Output 04/30/17 05/01/17 19:00 07:00 Intake Total 480 ml Balance 480 ml Intake Oral 480 ml Laboratory Tests Test 04/30/17 14:20 White Blood Count 14.4 K/UL (4.8-10.8) H Red Blood Count 3.53 M/UL (4.20-5.40) L Hemoglobin 10.9 G/DL (12.0-16.0) L Hematocrit 32.8 % (37.0-47.0) L Mean Corpuscular Volume 93 FL (80-99) Mean Corpuscular Hemoglobin 30.8 PG (27.0-31.0) Mean Corpuscular Hemoglobin Concent 33.2 G/DL (32.0-36.0) Red Cell Distribution Width 13.7 % (11.6-14.8) Platelet Count 296 K/UL (150-450) Mean Platelet Volume 6.0 FL (6.5-10.1) L Neutrophils (%) (Auto) 73.5 % (45.0-75.0) Lymphocytes (%) (Auto) 18.2 % (20.0-45.0) L Monocytes (%) (Auto) 5.9 % (1.0-10.0) Eosinophils (%) (Auto) 1.8 % (0.0-3.0) Basophils (%) (Auto) 0.6 % (0.0-2.0) Sodium Level 136 MMOL/L (136-145) Potassium Level 3.8 MMOL/L (3.5-5.1) Chloride Level 102 MMOL/L (98-107) Carbon Dioxide Level 27 MMOL/L (21-32) Anion Gap 7 mmol/L (5-15) Blood Urea Nitrogen 13 mg/dL (7-18) Creatinine 0.7 MG/DL (0.55-1.30) Estimat Glomerular Filtration Rate > 60 mL/min (>60) Glucose Level 129 MG/DL (74-106) H Calcium Level 8.5 MG/DL (8.5-10.1) Height (Feet): 5 Height (Inches): 8.00 Weight (Pounds): 150 Assessment/Plan Status: stable Assessment/Plan drug use depression no meds the pt does not meet the criteria for hold nor hospitalization Chidi Andino M.D. Apr 30, 2017 23:11
--- NOTE | 2017-05-02 10:38 | Discharge Summary ---
Discharge Summary Hospital Course Date of Admission Apr 26, 2017 at 05:24 Date of Discharge Apr 30, 2017 at 17:50 Admitting Diagnosis SEIZURE HPI Sejal Douglas is a 31 year old female who was admitted on Apr 26, 2017 at 05:24 for Seizure Hospital Course dc summary #[id number] Discharge Discharge Disposition Patient was discharged to recup care Discharge Diagnoses: Miguel (Helgaliz),Dejah PARDO May 02, 2017 10:38
--- NOTE | 2017-05-03 05:30 | Discharge Summary 2 SIG ---
DATE OF ADMISSION: 04/26/2017 DATE OF DISCHARGE: 04/30/2017 REASON FOR ADMISSION: 31-year-old female with history of seizure disorder and psychiatric disorder, presented with abnormal behavior. Paramedics brought her from the street. The patient declined auditory hallucinations and suicidal ideations. She reported having seizure earlier that day. The patient was taking Keppra and Dilantin. Per patient she was compliant with her medications. The patient apparently had a seizure once a month and was not seen neurologist in a while. Denied any head trauma. Denied alcohol or drug abuse. Workup in the emergency department revealed stable vital signs. Pulse oximetry was stable on room air. The patient was afebrile. EKG revealed normal sinus rhythm. No acute ischemic changes. Positive test. Urine toxicology screen was positive for cocaine, marijuana, and amphetamine. The patient was given Keppra. It was unclear if seizures were related to seizure disorder versus possible eclampsia, therefore magnesium replacement was given in ED. as well. The patient had mild leukocytosis -11.1, mild anemia with hemoglobin -10.7, and hematocrit -31.6. Urinalysis with a positive test, few bacteria, and +1 leukocyte esterase. Negative for nitrate and 5 to 10 WBC. LFT were within normal limits. HCG -36,849. The patient was admitted with the diagnoses of uncontrolled seizure, , and drug intoxication. HOSPITAL COURSE: The patient was admitted to Med/Surg floor. Seizure precautions were maintained. Neurologist seen and evaluated the patient. EEG was normal . Neurologist advised on future antiepileptics. Since most of the antiepileptics teratogenic, and the patient was allergic to lamotrigine, the patient was started Trileptal. The patient was advised to see the primary care provider once in a month to monitor her metabolic profile and LFT. Obstetric ultrasound revealed viable 15 week live . The patient informed about it. Patient was aware about her . Folic acid and multivitamin were added to her medication regimen. Hemoglobin and hematocrit remained at the baseline. Venous duplex bilateral lower extremities was negative for evidence of acute DVT. There was a concern of possible urinary tract infection in patient, and repeated urinalysis was ordered. However, the patient declined to provide another sample Magnesium was replaced. Psychiatric evaluation requested. Psychiatrist diagnosed the patient with depression and stated that the patient did not meet any criteria to be holdable. No medications at this time started due to [id number]. The patient was counseled on abstinence from street drugs. hoe worker seen and evaluated the patient. Recuperative housing was arranged. Due to late discharge, the patient was discharged to [facility] at [place], [place] for one night and follow up in the morning with recuperative housing. The patient agreed with the discharge plan. FINAL DIAGNOSES: 1. Acute toxic metabolic encephalopathy (due to intractable seizure, drug abuse) , resolved. 2. Intractable seizure disorder. 3. Chronic psychiatric disorder exacerbation. 4. . 5. Anemia. 6. Polysubstance abuse. 7. Depression DISCHARGE MEDICATIONS: See medication reconciliation list. DISCHARGE INSTRUCTIONS: The patient was discharged to the recuperative housing at [place]. Due to the late discharge, the patient was discharged over one night to [facility] in [place] and then in the morning to follow up with recuperative housing. Antoine Hampton M.D. Dejah SalazarBellevue HospitalAnita Rodriguez DR: RUBINA JOB#: [id number] CC: GLO
--- NOTE | 2017-05-10 00:10 | Diagnostic Imaging Report ---
APPROVED REPORT CPT Code: 67045 Present Symptoms Comments: R/O DVT BILATERAL: Imaging reveals a patent deep venous system bilaterally. There is no evidence of thrombus within the femoral, popliteal or tibial segments. The greater saphenous veins are also within normal limits. Doppler indicates normal spontaneous flow within these segments.
== END 2017-04-30 17:50 | disposition home or self-care (01) | DRG 566 ==
LOC: EDBD 00:40 → EMR 04:51 → EDBD 04:51 → 2E 05:24 → EDBEDREQ 06:00 → 4E 04-27 15:54
DX: O26.892 Other specified pregnancy related conditions, second trimester (principal); G92 Toxic encephalopathy; G40.804 Other epilepsy, intractable, without status epilepticus; F20.9 Schizophrenia, unspecified; O99.322 Drug use complicating pregnancy, second trimester; O99.342 Other mental disorders complicating pregnancy, second trimester; F32.9 Major depressive disorder, single episode, unspecified; F41.9 Anxiety disorder, unspecified; Z88.8 Allergy status to other drugs, medicaments and biological substances; D64.9 Anemia, unspecified; F19.10 Other psychoactive substance abuse, uncomplicated
CPT/HCPCS: 36415; 76805; 80048; 80053; 80061; 80185; 80307; 80329; 81003; 81025; 82607; 83735; 84443; 84702; 85025; 87081; 93005; 93970; 95819; 99285; J2405